=== PATIENT | female | born 1945 | race Caucasian/White ===

== ENCOUNTER → 2018-02-17 | Outpatient (CLI) | payer MEDICARE, OTHER | LOC: M.RAD 09:09 | DX: Z12.31 Encounter for screening mammogram for malignant neoplasm of breast (principal) ==

== ENCOUNTER → 2019-02-20 | Outpatient (CLI) | payer MEDICARE, OTHER | LOC: M.RAD 09:33 | DX: Z12.31 Encounter for screening mammogram for malignant neoplasm of breast (principal) ==

== ENCOUNTER → 2020-02-13 | Outpatient (CLI) | payer MEDICARE, OTHER | LOC: M.RAD 09:12 | PROVIDERS: ATTEND Student in an Organized Health Care Education/Training Program | DX: Z12.31 Encounter for screening mammogram for malignant neoplasm of breast (principal) ==

== ENCOUNTER → 2021-02-04 | Outpatient (CLI) | payer MEDICARE | LOC: M.RAD 08:45 | PROVIDERS: ATTEND Student in an Organized Health Care Education/Training Program | DX: Z12.31 Encounter for screening mammogram for malignant neoplasm of breast (principal) ==